=== PATIENT | male | born 1960 | race Two or more races ===

== ENCOUNTER 2024-09-22 10:08 | Emergency (ER) | payer OTHER, SELFPAY ==
[2024-09-22 10:12] VITALS: BP 156/99; PULSE 109; TEMP 36.6; O2SAT 91; BMI 38.0
--- NOTE | 2024-09-22 10:23 | PC.NURSE ---
no redness, bruising or swelling to neck or back, pt having trouble ambulating and pain when turning neck.
--- NOTE | 2024-09-22 10:28 | XR_ITS ---
The [place] [id number] Patient Name: SYLVESTER MADISON MRN: [facility]:[id number] date: 1960 Sex: M Assigned Patient Location: ER Current Patient Location: ER Accession/Order Number: [id number] Exam Date: 09/22/2024 10:45 Report Date: 09/22/2024 11:05 At the request of: CYN BRIONES Procedure: XR lumbar spine 2-3V EXAMINATION: XR lumbar spine 2-3V HISTORY: pain COMPARISON: No relevant comparison available. FINDINGS: BONES: No significant spondylosis, scoliosis, fracture, or visible bony lesion. DISC SPACES: No significant disc height narrowing, subluxation, or endplate abnormality. PARASPINOUS: Negative. No paraspinous abnormality is seen. OTHER: Negative. XR/XR lumbar spine 2-3V IMPRESSION: 1. No appreciable acute abnormality. 2. Minimal degenerative changes. Electronically authenticated by: LILLI HONEYCUTT Date: 09/22/2024 11:05
--- NOTE | 2024-09-22 10:28 | ED_ITS ---
HPI HPI - Back Pain/Injury General Chief Complaint: Back Pain/Injury Stated Complaint: BACK AND NECK PAIN Time Seen by Provider: 09/22/24 10:25 Source: patient Mode of arrival: Wheelchair History of Present Illness HPI Narrative: 64-year-old male presents to the emergency department for lower back and neck pain. It started 2 weeks ago when he was lifting a heavy toilet and he felt pulling in these 2 areas then. Subsequently he went to an urgent care center where he states they took x-rays of his lower back and put him on some medication. He did not have x-rays of his neck. No weakness or numbness in his arms or legs. He did not fall when this happened. It is worse in certain positions. Related Data Previous Rx's ?Medication ?Instructions ?Recorded hydrocodone 5 mg-acetaminophen 325 1 tab PO Q6H PRN pain 5 days #20 09/22/24 mg tablet tabs Allergies Allergy/AdvReac Type Severity Reaction Status Date / Time No Known Drug Allergies Allergy Verified 09/22/24 10:20 Opioid HPI Opioid Management Most Recent Opioid Data: Last Pain Scale 10 09/22/24 10:57 09/22/24 Last MAR Pain Assessment 09/22/24 10:57 Review of Systems ROS Narrative A ten point review of systems is negative except as noted above. PFSH PFSH Social History Little interest or pleasure in doing things: not at all Feeling down, depressed, or hopeless: not at all Exam Narrative Exam Narrative: Nurses note and vital signs reviewed and patient is not hypoxic. General: The patient appears in no apparent distress. Skin: Warm, dry, no pallor noted. There is no rash noted. Head: Normocephalic, atraumatic Eye: Normal conjunctiva, no drainage Ears, Nose, Mouth, and Throat: oral mucosa is moist. Nares patent. Cardiovascular: Regular Rate and Rhythm Respiratory: Patient is in no distress, no accessory muscle use, lungs are clear to auscultation, no wheezing, rales or rhonchi Back: No bruise or rash or palpable tenderness. He is reluctant to turn his head and has discomfort getting into a seated position from recumbency. GI: Soft and nontender Musculoskeletal: The patient has no evidence of calf tenderness, no pitting edema, symmetrical pulses noted bilaterally Neurological: A&O, normal speech Psychiatric: Cooperative Constitutional Vital Signs, click to edit/add: Last Vital Signs Temp 97.8 F 09/22/24 10:12 Pulse 109 H 09/22/24 10:12 Resp 22 H 09/22/24 10:12 BP 156/99 H 09/22/24 10:12 Pulse Ox 91 L 09/22/24 10:12 O2 Del Method Room Air 09/22/24 10:12 Course Vital Signs Vital signs: Vital Signs Temperature 97.8 F 09/22/24 10:12 Pulse Rate 109 H 09/22/24 10:12 Respiratory Rate 22 H 09/22/24 10:12 Blood Pressure 156/99 H 09/22/24 10:12 Pulse Oximetry 91 L 09/22/24 10:12 Oxygen Delivery Method Room Air 09/22/24 10:12 Temperature 97.8 F 09/22/24 10:12 Pulse Rate 109 H 09/22/24 10:12 Respiratory Rate 22 H 09/22/24 10:12 Blood Pressure 156/99 H 09/22/24 10:12 Pulse Oximetry 91 L 09/22/24 10:12 Oxygen Delivery Method Room Air 09/22/24 10:12 MDM - Back Pain/Injury MDM Narrative Medical decision making narrative: X-rays are negative. He was given IM Toradol and Norflex and prescribed Wellfleet. He is already on Flexeril and lidocaine patch and prednisone. Treatment diagnosis and follow-up were discussed with the patient and his . Differential Diagnosis Differential diagnosis: Likely strain of lumbar region and other (Fracture, cervical strain, cervical fracture) Imaging Data Lumbar, cervical x-ray: Radiologist's impression: ITS Impressions Cervical Spine X-Ray 09/22/24 10:28 IMPRESSION: 1. No appreciable acute abnormality. 2. Mild-moderate degenerative changes. Electronically authenticated by: LILLI HONEYCUTT Date: 09/22/2024 11:13 Lumbar Spine X-Ray 09/22/24 10:28 IMPRESSION: 1. No appreciable acute abnormality. 2. Minimal degenerative changes. Electronically authenticated by: LILLI HONEYCUTT Date: 09/22/2024 11:05 Discharge Plan Discharge Chief Complaint: Back Pain/Injury Clinical Impression: Lumbar strain, Cervical strain Patient Disposition: Home, Self-Care Time of Disposition Decision: 11:21 Condition: Good Mode of Transportation: Private Vehicle Prescriptions / Home Meds: New hydrocodone-acetaminophen 5-325 mg tablet 1 tab PO Q6H PRN (Reason: pain) 5 Days Qty: 20 0RF Print Language: Belgian Instructions: Cervical Strain (ED), Low Back Strain (ED) Referrals: Physician,Non-Staff, MD [Primary Care Provider] - 1 week
--- NOTE | 2024-09-22 10:28 | XR_ITS ---
The [address] [address] Patient Name: SYLVESTER MADISON MRN: [facility]:[id number] date: 1960 Sex: M Assigned Patient Location: ER Current Patient Location: ER Accession/Order Number: [id number] Exam Date: 09/22/2024 10:45 Report Date: 09/22/2024 11:13 At the request of: CYN BRIONES Procedure: XR cervical spine 2-3V EXAMINATION: XR cervical spine 2-3V HISTORY: pain COMPARISON: No relevant comparison available. FINDINGS: BONES: Straightening of the normal lordotic curvature. No fracture or spondylolisthesis. Multilevel mild degenerative facet arthropathy. DISC SPACES: Moderate narrowing on the right side of C1-2. Mild-moderate narrowing C5-6 and C6-7. PARASPINOUS: Negative. No paraspinous abnormality is seen. OTHER: Negative. XR/XR cervical spine 2-3V IMPRESSION: 1. No appreciable acute abnormality. 2. Mild-moderate degenerative changes. Electronically authenticated by: LILLI HONEYCUTT Date: 09/22/2024 11:13
[2024-09-22] MEDS: ORPHENADRINE 60 MG/ 2 ML VIAL IM (10:56)
[2024-09-22] MEDS: KETOROLAC TROMETHAMINE 60 MG/2 ML VIAL IM (10:57)
== END 2024-09-22 11:27 | disposition home or self-care (01) ==
PROVIDERS: Emergency Provider Emergency Medicine
DX: S39.012A Strain of muscle, fascia and tendon of lower back, initial encounter (principal); S16.1XXA Strain of muscle, fascia and tendon at neck level, initial encounter; X50.0XXA Overexertion from strenuous movement or load, initial encounter
CPT/HCPCS: 72040; 72100; 96372; 99284; J1885; J2360

== ENCOUNTER 2024-10-01 11:35 | Emergency (ER) | payer OTHER, SELFPAY ==
[2024-10-01] VITALS (70 sets, daily range): BP systolic 118–157; BP diastolic 75–89; PULSE 90–116; TEMP 37; O2SAT 88–100; BMI 38.0
--- OUTSIDE RECORDS SUMMARY | 2024-10-01 11:54 | XMS_ITS | CCD ---
Author Organization [facility] Care Team Providers Care [facility] Receiving Clerk Name Role Phone NON STAFF Primary Care Unavailable Corie Higgins Attending Unavailable Corie Higgins Admitting Unavailable NON STAFF Primary Care Provider Unavailbonnie e Corie Higgins APRN Attending Provider Medications Current Medications Medication Drug Class(es) Dates Sig (Normalized) Sig (Original) cyclobenzaprine hydrochloride 10 mg oral tablet (1 source) Muscle Relaxant Start: 09-08-2024 take 1 tablet by mouth three times daily as needed for muscle spasms Cyclobenzaprine 10 mg tablet Active 10 MG PO Three times daily as needed for muscle spasm 10 4 September 08, 2024 12:00am lidocaine 0.05 mg/mg medicated patch (1 source) Antiarrhythmic, Amide Local Anesthetic Start: 09-08-2024 apply 1 dose topically once daily Lidocaine 5 % adhesive patch,medicated Active 1 PATCH TOPICAL Daily 15 14 September 08, 2024 12:00am leave on most painful area for up to 12 hrs predniSONE 50 mg oral tablet (1 source) Start: 09-08-2024 take 1 tablet by mouth once daily Prednisone 50 mg tablet Active 50 MG PO Daily 5 5 September 08, 2024 12:00am Problems Problem Classification Problem Date Documented Da te Episodic/Chronic Other non-traumatic joint disorders (1 source) Hip pain; Translations: [Pain in left hip] 09-08-2024 Episodic Other non-traumatic joint disorders (1 source) Pain in left hip; Translations: [Pain in joint, pelvic region and thigh] 09-08-2024 Episodic Spondylosis; intervertebral disc disorders; other back problems (2 sources) Low back pain; Translations: [Low back pain] 09-08-2024 Episodic Unclassified (1 source) Low back pain, unspecified; Translations: [Low back pain, unspecified] Onset: 09-08-2024 Results Test Name Value Interpretation Reference Range Facil ity X-ray reportOrdered By: Artemio Ott on 09-08-2024 Study report [facility] [place] [address] XRay Report Signed Patient: Taz Tapia MR#: [id number] : 1960 Acct:[id number] Age/Sex: 64 / M ADM Date: 4 Loc: XDUCLY [facility]: [facility]: Corie Higgins APRN Copies to: Corie Higgins APRN~ Ordering Provider: Corie Higgins APRN Date of Service: 09/08/24 XR/XR lumbar spine min 4V*: LOW BACK PAIN ([id number]) XR/XR hip LT min 2V(w/wo pelvis)*: LEFT HIP PAIN 6 views Lumbar Spine HISTORY: Low back pain. Radiation to the left COMPARISON: None POSTSURGICAL CHANGES: None BONY ALIGNMENT: Adequate HYPERMOBILITY:No bending imaging. LISTHESIS:None FRACTURE: None DEGENERATIVE CHANGES: Extensive lower lumbar degeneration. Mild L4-5 and L5-S1 spondylosis. SOFT TISSUES: Unremarkable BONY MINERALIZATION:Adeq uate XR/XR lumbar spine min 4V* IMPRESSION: Extensive lower lumbar facet degeneration 2 views of left hip Adequate alignment. No acute displaced fracture. There are no significant degenerative change. IMPRESSION: Unremarkable exam Impression dictated by: Ady Ott M.D.09/08/2024 2:32 PM Dictation Location: [place] [address] Transcribed By: [facility] 09/08/24 1432 Dictated By: Ady Ott DO 09/08/24 1431 Signed By: 09/08/24 1432 [facility] XR hip LT min 2V(w/wo pelvis )*on 09-08-2024 XR hip LT min 2V(w/wo pelvis)* [facility] Main [address] [address] XRay Report Signed Patient: Taz Tapia MR#: [id number] : 1960 Acct:[id number] Age/Sex: 64 / M ADM Date: 09/08/24 Loc: XDUCLY Room: Type: [facility] Attending Dr: Corie Higgins APRN Copies to: Corie Higgins APRN Ordering Provider: Corie Higgins APRN Date of Service: 09/08/24 XR/XR lumbar spine min 4V*: LOW BACK PAIN ([id number]) XR/XR hip LT min 2V(w/wo pelvis)*: LEFT HIP PAIN 6 views Lumbar Spine HISTORY: Low back pain. Radiation to the left COMPARISON: None POSTSURGICAL CHANGES: None BONY ALIGNMENT: Adequate HYPERMOBILITY:No bending imaging. LISTHESIS:None FRACTURE: None DEGENERATIVE CHANGES: Extensive lower lumbar degeneration. Mild L4-5 and L5-S1 spondylosis. SOFT TISSUES: Unremarkable BONY MINERALIZATION:Adeq uate XR/XR lumbar spine min 4V* IMPRESSION: Extensive lower lumbar facet degeneration 2 views of left hip Adequate alignment. No acute displaced fracture. There are no significant degenerative change. IMPRESSION: Unremarkable exam Impression dictated by: Ady Ott M.D.09/08/2024 2:32 PM Dictation Location: [place] [address] Transcribed By: [facility] 09/08/24 1432 Dictated By: Ady Ott DO 09/08/24 1431 Signed By: 09/08/24 1432 Normal [facility] Vital Signs Date Time Vital Sign Value Performing Clinician Lynette cole 09-08-2024 13:04-0500 Body height 177.8 cm [facility] 09-08-2024 13:04-0500 Body mass index (BMI) [Ratio] 37.9 kg/m2 [facility] 09-08-2024 13:04-0500 Body temperature 97.8 [degF] [facility] 09-08-2024 13:04-0500 Body weight 119.86 kg [facility] 09-08-2024 13:04-0500 Diastolic blood pressure 94 mm[Hg] [facility] 09-08-2024 13:04-0500 Heart rate 111 /min [facility] 09-08-2024 13:04-0500 SaO2% (BldA) [Mass fraction] 95 % [facility] 09-08-2024 13:04-0500 Systolic blood pressure 163 mm[Hg] [facility] Encounters Encounter Date Encounter Type Care Provider Facility Start: 09-08-2024 End: 09-08-2024 Patient encounter procedure [facility] Work Phone: Start: 09-08-2024 End: 09-08-2024 ambulatory NON STAFF Facility:[facility] Start: 09-08-2024 End: 09-08-2024 Patient encounter procedure [facility] Work Phone: Procedures Date Procedure Procedure Detail Performing Clinician Start: 09-08-2024 Plain X-ray of left hip Start: 09-08-2024 X-ray of lumbar spin e, four or more views Plan of Treatment Date Care Activity Detail Author Patient Education Low back pain in adults [facility] Work Phone: XR Hip - left 2 Views [facility] XR Lumbar spine GE 4 Views [facility] Payers Date Payer Category Payer Private Health Insurance [id number] 2024 Self-pay Unknown [id number] Social History Date Type Detail Facility Tobacco smoking stat [facility] Unknown if ever smoked [facility] Work Phone: Start: 09-09-2024 Sex Male (finding) [facility] Start: 1960 Sex Assigned At Male F [facility] Evaluation note 09-08-2024 Note Date & Type Note Facility 09-08-2024 Evaluation note Diagnosis Onset Date Resolution Left hip pain acute September 082023 12:09pm Low back pain acute September 082023 12:09pm [facility] Work Phone: Summary Purpose Family History No Family History Records Found Advance Directives Advance Directive Response Recorded Date/ Time Advance Directives No August 12:08pm Chief Complaint and Reason for Visit Chief Complaint Admit Date back pain no injury September 08, 2024 12:09pm M25.552 September 08, 2024 1:47pm Reason for Visit Admit Date Left hip pain September 08, 2024 12:09pm Low back pain September 08, 2024 12:09pm Additional Source Comments (unrecognized sect ion and content) No Status Records Found INFORMATION SOURCE (unrecogn ized section and content) DATE CREATED AUTHOR 09/18/2024 [facility] Care Teams (unrecognized sec tion and content) Team Status: Active Member Role Status Dates NON STAFF Primary Care Provider Active Team Status: Inactive Member Role Status Dates Corie Higgins APRN Attending Provider Active S tart: September 08, 2024 End: September 08, 2024 NON STAFF Primary Care Provider Active Start: September 08, 2024 End: September 08, 2024 Team Status: Inactive Member Role Status Dates NON STAFF Primary Care Provider Active Start: September 08, 2024 End: September 08, 2024 Corie Higgins APRN Attending Provider Active S tart: September 08, 2024 End: September 08, 2024 Goals (unrecognized section and content) Goals may be documented in a n alternate section FOR RECORDS PERTAINING TO PATIENTS WHO ARE OR HAVE BEEN ENROLLED IN A CHEMICAL DEPENDENCY/SUBSTANCEABUSE PROGRAM, SOME INFORMATION MAY BE OMITTED. This clinical summary was aggregated from multiple sources. Caution should be exercised in using it in the provision of clinical care. This summary normalizes information from multiple sources, and as a consequence, information in this document may materially change the coding, format and clinical context of patient data. In addition, data may be omitted in some cases. CLINICAL DECISIONS SHOULD BE BASED ON THE PRIMARY CLINICAL RECORDS. [facility] Support [employer] [facility]. provides no warranty or guarantee of the accuracy or completeness of information in this document.
--- NOTE | 2024-10-01 12:09 | CT_ITS ---
The [address] [address] Patient Name: SYLVESTER MADISON MRN: [facility]:[id number] date: 1960 Sex: M Assigned Patient Location: ER Current Patient Location: ER Accession/Order Number: [id number] Exam Date: 10/01/2024 12:50 Report Date: 10/01/2024 13:51 At the request of: TOMER PIRES Procedure: CT cervical spine wo con EXAMINATION: CT lumbar spine wo con, CT cervical spine wo con HISTORY: right leg weakness COMPARISON: No relevant comparison available. TECHNIQUE: Axial, Coronal, and Sagittal CT images were created without I.V. contrast material. Dose reduction techniques were achieved by using automated exposure control and/or adjustment of mA and/or kV according to patient size and/or use of iterative reconstruction technique. CERVICAL SPINE FINDINGS: PARASPINAL AREA: Normal with no visible mass. DISCS: Multilevel disc space narrowing with endplate sclerosis BONES: Normal alignment with no spondylolisthesis. Complex fracture involving the right C1 vertebral body with underlying lytic changes. Additional lytic changes involving the vertebral bodies most significant at C4 C6 C7 and T1 OTHER: Negative. CT/CT cervical spine wo con IMPRESSION: Diffuse lytic metastases with associated complex pathologic fracture through the right C1 vertebral body LUMBAR SPINE FINDINGS: PARASPINAL AREA: Normal with no visible mass. DISCS: Mild multilevel discogenic changes BONES: Normal alignment with no spondylolisthesis. There is a depressed appearance of the L4 superior endplate with retropulsion of the posterior superior body into the central canal. Underlying diffuse lytic changes involving the vertebral bodies posterior elements and spinous processes most significant along the L4 vertebral body OTHER: Expansile appearance of the vertebral body and right pedicle at L4 likely resulting in significant L4-L5 foraminal stenosis IMPRESSION: Diffuse lytic changes, metastatic disease is favored Masslike destruction of the right L4 vertebral body pedicle and transverse process with retropulsion into the central canal and right L4-L5 foraminal stenosis. Electronically authenticated by: ELVIA DEL CID Date: 10/01/2024 13:51
--- NOTE | 2024-10-01 12:09 | ECG_ITS ---
The [facility] Test Date: 2024-10-01 Pat Name: SYLVESTER MADISON Department: Room: - Gender: Male [employer]: : 1960 Requested By: [id number] Order Number: [id number] Reading MD: JOHN GIBBS Measurements Intervals [place] Rate: 109 P: 68 OR: 134 QRS: -40 QRSD: 98 T: 189 QT: 324 QTc: 388 Interpretive Statements 1120 Sinus tachycardia [address] depression [address] & [place] abnormality 7200 Abnormal left axis deviation 8003 Consistent with pulmonary disease 9150 abnormal ECG No previous ECG available for comparison Electronically Signed On 10-01-2024 17:56:40 EST by JOHN GIBBS
--- NOTE | 2024-10-01 12:10 | CT_ITS ---
The [address] [address] Patient Name: SYLVESTER MADISON MRN: [facility]:[id number] date: 1960 Sex: M Assigned Patient Location: ER Current Patient Location: Accession/Order Number: [id number] Exam Date: 10/01/2024 12:50 Report Date: 10/01/2024 14:07 At the request of: TOMER PIRES Procedure: CT head/brain wo con CT HEAD WITHOUT CONTRAST, 10/01/2024 HISTORY: Headache. Pain and skull base. COMPARISON: None. TECHNIQUE: Noncontrast axial CT images obtained through the head. Reconstructions obtained in the sagittal and coronal planes. Dose reduction techniques were achieved by using automated exposure control and/or adjustment of mA and/or kV according to patient size and/or use of iterative reconstruction technique. FINDINGS: The paranasal sinuses are clear. Middle ear cavities clear. Mastoid air cells are clear. There are multiple lytic skull lesions. Nasopharynx normal. Orbital contents appear normal. No mass identified in the scalp. No skull base lesion identified. No hydrocephalus. No subdural fluid collection. No mass effect. No shift of midline. No edema in the brain. No brain mass. Tan matter and white matter differentiation is intact. No hemorrhage. CT/CT head/brain wo con IMPRESSION: 1. There are multiple lytic bone lesions in the skull consistent with either metastatic disease or multiple myeloma. 2. The brain is unremarkable. No intracranial hemorrhage. No brain mass. Electronically authenticated by: MOISÉS TELLO Date: 10/01/2024 14:07
--- NOTE | 2024-10-01 12:11 | CT_ITS ---
[address] [address] Patient Name: SYLVESTER MADISON MRN: [facility]:[id number] date: 1960 Sex: M Assigned Patient Location: ER Current Patient Location: ER Accession/Order Number: [id number] Exam Date: 10/01/2024 12:50 Report Date: 10/01/2024 13:51 At the request of: TOMER PIRES Procedure: CT lumbar spine wo con EXAMINATION: CT lumbar spine wo con, CT cervical spine wo con HISTORY: right leg weakness COMPARISON: No relevant comparison available. TECHNIQUE: Axial, Coronal, and Sagittal CT images were created without I.V. contrast material. Dose reduction techniques were achieved by using automated exposure control and/or adjustment of mA and/or kV according to patient size and/or use of iterative reconstruction technique. CERVICAL SPINE FINDINGS: PARASPINAL AREA: Normal with no visible mass. DISCS: Multilevel disc space narrowing with endplate sclerosis BONES: Normal alignment with no spondylolisthesis. Complex fracture involving the right C1 vertebral body with underlying lytic changes. Additional lytic changes involving the vertebral bodies most significant at C4 C6 C7 and T1 OTHER: Negative. CT/CT lumbar spine wo con IMPRESSION: Diffuse lytic metastases with associated complex pathologic fracture through the right C1 vertebral body LUMBAR SPINE FINDINGS: PARASPINAL AREA: Normal with no visible mass. DISCS: Mild multilevel discogenic changes BONES: Normal alignment with no spondylolisthesis. There is a depressed appearance of the L4 superior endplate with retropulsion of the posterior superior body into the central canal. Underlying diffuse lytic changes involving the vertebral bodies posterior elements and spinous processes most significant along the L4 vertebral body OTHER: Expansile appearance of the vertebral body and right pedicle at L4 likely resulting in significant L4-L5 foraminal stenosis IMPRESSION: Diffuse lytic changes, metastatic disease is favored Masslike destruction of the right L4 vertebral body pedicle and transverse process with retropulsion into the central canal and right L4-L5 foraminal stenosis. Electronically authenticated by: ELVIA DEL CID Date: 10/01/2024 13:51
[2024-10-01 12:37] LABS: Hematocrit 41.7 % (42.0-54.0); Hemoglobin 14.2 g/dL (14.0-18.0); Mean Corpuscular HGB Conc 34.1 g/dL (29.9-35.2); Mean Corpuscular Hemoglobin 36.3 pg (25.9-34.0); Mean Corpuscular Volume 106.6 fL (80.0-94.0); Mean Platelet Volume 10.2 fL (9.5-13.5); Platelet Count 107 10^3/uL (150-450); Red Blood Count 3.91 10^6/uL (4.70-6.10); Red Cell Distribution Width 13.3 % (11.0-15.0); White Blood Count 23.7 10^3/uL (4.0-11.0)
[2024-10-01] MEDS: KETOROLAC TROMETHAMINE 30 MG/ML VIAL 15 MG IVP (12:43)
[2024-10-01 12:45] LABS: Influenza Virus A Antigen Negative; Influenza Virus B Antigen Negative; Internal Control Within Normal Limits; SARS-CoV-2 Ag NEGATIVE (NEGATIVE)
[2024-10-01 12:49] LABS: Alanine Aminotransferase 57 U/L (16-63); Albumin Globulin Ratio 0.8; Albumin Level 2.9 g/dL (3.4-5.0); Alkaline Phosphatase 483 U/L (46-116); Aspartate Amino Transferase 87 U/L (15-37); BUN Creatinine Ratio 24.1; Bilirubin Total 3.3 mg/dL (0.2-1.0); Calcium 11.8 mg/dL (8.5-10.1); Carbon Dioxide 32.7 mmol/L (21.0-32.0); Chloride 99 mmol/L (98-107); Estimated GFR (African America >60 (>=60 mL/min/1.73m^2); Estimated GFR (Non-African Ame >60 (>=60 mL/min/1.73m^2); Globulin 3.6 g/dL; Glucose 115 mg/dL (74-106); Potassium 4.7 mmol/L (3.5-5.1); Sodium 137 mmol/L (136-145); Total Protein 6.5 g/dL (6.4-8.2)
[2024-10-01 12:50] LABS: Band Neutrophils Absolute 0.2 10^3/uL (0.0-0.3); Eosinophils Absolute Manual 0.23 10^3/uL (0.00-0.70); Lymphocytes Absolute Manual 0.94 10^3/uL (1.20-3.80); Monocytes Absolute Manual 3.31 10^3/uL (0.30-0.80); Segmented Neut Absolute Manual 18.96 10^3/uL (1.4-6.5)
[2024-10-01 12:51] LABS: Anisocytosis 1+; Macrocytosis 1+
[2024-10-01 12:56] LABS: INR 1.33; Prothrombin Time 13.7 sec (9.0-11.6)
[2024-10-01 13:02] LABS: D Dimer 13.56 mg/L FEU (<=0.59)
--- NOTE | 2024-10-01 13:06 | CT_ITS ---
[address] [address] Patient Name: SYLVESTER MADISON MRN: [facility]:[id number] date: 1960 Sex: M Assigned Patient Location: ER Current Patient Location: Accession/Order Number: [id number] Exam Date: 10/01/2024 12:50 Report Date: 10/01/2024 14:37 At the request of: TOMER PIRES Procedure: CT angio chest EXAM: CT angio chest HISTORY: sob elevated dimer COMPARISON: Same-day CT lumbar spine TECHNIQUE: CT angio chest FINDINGS: OVERALL DIAGNOSTIC QUALITY: Mildly suboptimal quality with incomplete evaluation of subsegmental pulmonary arteries due to respiratory motion artifact. LOWER NECK: No abnormality. CHEST: PULMONARY ARTERIES: Embolus within the right lower lobe medial segmental pulmonary artery and its distal branches. Limited subsegmental pulmonary arterial evaluation due to respiratory motion. LUNGS / AIRWAYS / PLEURA: Irregular spiculated opacities throughout the lungs, highly suspicious for metastatic disease given the additional findings of metastatic disease, described below. For example, there is a solid spiculated nodule in the left upper lobe measuring 1.0 cm (image 15 of series 4) and a subsolid spiculated nodule in the right lower lobe measuring 1.1 cm (image 36 of series 4). There is also superimposed septal thickening. No pleural effusion or pneumothorax. Diffuse peribronchial thickening, also with mucous plugging of the distal left upper lobe bronchioles. HEART / OTHER VESSELS: Trace coronary artery disease. No evidence of right heart strain. MEDIASTINUM / ESOPHAGUS: Normal. LYMPH NODES: Multiple calcified mediastinal and hilar lymph nodes. CHEST WALL: No significant abnormality. UPPER ABDOMEN: Numerous hypoenhancing lesions of the liver, the largest measuring up to 5.2 cm (image 83 of series 4). Mildly nodular liver surface. Small volume ascites. Irregular peritoneal nodularity noted anteriorly, raising the suspicious for peritoneal carcinomatosis. MUSCULOSKELETAL: Extensive lytic osseous metastatic disease throughout the axial skeleton, including of the right acromion and right humeral head, both scapulae, and numerous bilateral ribs. Lytic involvement throughout the thoracolumbar spine as described on the same day thoracic and lumbar spine CTs. CT/CT angio chest IMPRESSION: 1. Pulmonary embolus within the right lower lobe medial segmental pulmonary artery and its distal branches. No evidence of right heart strain. 2. Numerous irregular spiculated opacities throughout the lungs, highly suspicious for metastatic disease. Atypical multifocal pneumonia is less likely but could be superimposed upon the metastatic disease. 3. Numerous hypoenhancing hepatic lesions and osseous lytic lesions throughout the imaged axial skeleton, highly suspicious for metastatic disease of unknown primary. Small volume ascites and nodularity of the omentum raises the suspicion for peritoneal carcinomatosis. Consider dedicated CT abdomen pelvis with contrast for further evaluation. 4. Peribronchial thickening throughout the lungs, with distal mucous plugging in the left upper lobe. Findings were discussed with Dr. Pires via telephone by Dr. Oscar on 10/01/2024 1:34 PM [employer]. Electronically authenticated by: JAMSHID OSCAR Date: 10/01/2024 14:37
[2024-10-01] MEDS: MORPHINE SULFATE 4 MG/ML VIAL IV ×3 (14:27→20:38)
[2024-10-01] MEDS: DEXAMETHASONE SOD PHOS 10 MG/ML VIAL IV (14:27)
[2024-10-01 15:11] LABS: Partial Thromboplastin Time 24.9 sec (22.3-36.2)
[2024-10-01] MEDS: HEPARIN SODIUM (PORCINE) 5,000 UNIT/ML VIAL 7400 UNIT IV (15:17)
[2024-10-01] MEDS: HEPARIN SODIUM,PORCINE/D5W 25,000 UNIT/500 ML IV.SOLN 30 UNIT IV (15:17)
[2024-10-01 15:40] LABS: Lactate Dehydrogenase 253 U/L (85-227)
--- NOTE | 2024-10-01 15:45 | ED_ITS ---
HPI HPI - General Adult General Chief complaint: Back Pain/Injury Stated complaint: back pain Time Seen by Provider: 10/01/24 11:59 Source: patient Mode of arrival: Wheelchair Limitations: physical limitation History of Present Illness HPI narrative: The patient have no previous medical history coming to the ER for the evaluation of his right-sided neck and back pain that he had almost a week ago, patient at that time presented to the ER with headache x-ray of his back and his neck showed arthritis. The patient mentioned that the pain medication are not working and he is coming for evaluation Although the patient denies any other complaint he does seem to be tachypneic his pulse ox was 88% at room air, patient denies being smoker at any time he also was noted to be tachycardic The patient is also complaining of some headache in the right side of his head The patient was providing history he mentioned that he also has been dragging his right leg the last few days which is a new finding, the patient himself is not complaining of weakness although he agree that he has been dragging his right leg and he have some weakness in it Related Data Previous Rx's ?Medication ?Instructions ?Recorded hydrocodone 5 mg-acetaminophen 325 1 tab PO Q6H PRN pain 5 days #20 09/22/24 mg tablet tabs Allergies Allergy/AdvReac Type Severity Reaction Status Date / Time No Known Drug Allergies Allergy Verified 10/01/24 11:51 Opioid HPI Opioid Management Most Recent Opioid Data: Last Pain Scale 6 10/01/24 18:27 10/01/24 Last MAR Pain Assessment 10/01/24 18:27 Review of Systems ROS Status of ROS 10 or more systems reviewed and unremark able except as noted in history and below PFSH PFSH Social History Little interest or pleasure in doing things: not at all Feeling down, depressed, or hopeless: not at all Exam Narrative Exam Narrative: Nurses notes and vital signs reviewed and the patient is not in distress but his pulse ox is 88% at room air General: Well-appearing and in no apparent distress. Skin: Warm, dry, no pallor noted. No rash. Head: Normocephalic, atraumatic. Neck: Supple, non-tender. Eye: Pupils are equal, round and EOMI. No scleral icterus. Ears, Nose, Mouth, and Throat: TM are clear, no nasal mucosal hypertrophy. Oral mucosa is moist, no posterior oropharynx erythema, uvula is mid-line Cardiovascular: Regular Rate and Rhythm without murmur, gallop or rub. Respiratory: There is decreased air entry bilaterally and distant breathing sounds Lungs are clear to auscultation, no wheezing, rales or rhonchi Chest Wall: no tenderness Back: There is tenderness upon palpation of the lower thoracic area as well as the lumbar intervertebral level. Musculoskeletal: normal ROM, no calf or popliteal tenderness, no lower extremity edema/swelling GI: Abdomen is soft, non-distended. Normal bowel sounds. No masses appreciated. No tenderness to palpation. No rebound, guarding, or rigidity noted. Neurological: A&O x4. No cranial nerve dysfunction observed. The patient does have weakness in the right leg and he have some effort against gravity on the right side on the left side the patient have more effort against gravity but he cannot still hold his left lower extremity against gravity for long Psychiatric: Cooperative and interactive. Normal mood and affect. Constitutional Vital Signs, click to edit/add: Last Vital Signs Temp 98.6 F 10/01/24 11:51 Pulse 108 H 10/01/24 17:20 Resp 21 H 10/01/24 17:20 BP 151/84 H 10/01/24 15:25 Pulse Ox 95 10/01/24 17:20 O2 Del Method Room Air 10/01/24 11:51 Course Vital Signs Vital signs: Vital Signs Temperature 98.6 F 10/01/24 11:51 Pulse Rate 116 H 10/01/24 11:51 Respiratory Rate 18 10/01/24 11:51 Blood Pressure 142/86 H 10/01/24 11:51 Pulse Oximetry 88 L 10/01/24 11:51 Oxygen Delivery Method Room Air 10/01/24 11:51 Temperature 98.6 F 10/01/24 11:51 Pulse Rate 108 H 10/01/24 17:20 Respiratory Rate 21 H 10/01/24 17:20 Blood Pressure 151/84 H 10/01/24 15:25 Pulse Oximetry 95 10/01/24 17:20 Oxygen Delivery Method Room Air 10/01/24 11:51 Medical Decision Making MDM Narrative Medical decision making narrative: It was noted that the patient have a sinus tachycardia with presentation on the EKG in addition to no ST elevation Patient was provided with prednisone in the last 10 days he was evaluated another facility, in addition to the Norflex as a muscle laxer The patient prednisone could be the reason for the leukocytosis and that there is no source of infection The patient chemistry showing multiple alteration of the liver enzymes in addition to alk phos elevation It was also noted that the patient D-dimer was elevated and his CT of the chest shows pulmonary embolism on the right side in addition to multiple metastatic lung disease The patient also had a multiple liver metastasis and when reviewing the CAT scan of the cervical spine and the CT of the head the patient had multiple osteolytic lesion as well CT of the lumbar spine showed that the patient have a significant damage in the L4 level with possible masslike with the significant L4-L5 stenosis The patient was started on heparin for PE management according to PE protocol Patient also was started on morphine for pain Decadron 10 mg IV given to help relieving some of the pressure at the spinal cord The patient case was discussed with and oncology service and he agreed that the patient can be transferred to [facility] The patient right now on 2 L nasal cannula to saturate 95% The patient case was discussed with [facility] Dr. Go and neurosurgery and he requested the patient be transferred to a facility where they have spine oncology due to the pathological fracture to C1 and L4 As per the recommendation of neurosurgery if the patient is not in pain he does not have to be in a cervical collar case was discussed with neurosurgery in [facility] and with Dr. Vieira and there is no bed available at least for 1 or 2 days The patient also had a COVID and flu test are negative Right now the patient case also will be discussed with [facility] Lab Data Labs: Lab Results 10/01/24 10/01/24 Range/Units 12:24 12:27 WBC 23.7 H (4.0-11.0) 10^3/uL RBC 3.91 L (4.70-6.10) 10^6/uL Hgb 14.2 (14.0-18.0) g/dL Hct 41.7 L (42.0-54.0) % MCV 106.6 H (80.0-94.0) fL MCH 36.3 H (25.9-34.0) pg MCHC 34.1 (29.9-35.2) g/dL RDW 13.3 (11.0-15.0) % Plt Count 107 L (150-450) 10^3/uL MPV 10.2 (9.5-13.5) fL Seg Neuts % (Manual) 80.0 H (43.0-75.0) Band Neutrophils % 1.0 (0-5) % Lymphocytes % (Manual) 4.0 L (20.5-60.0) % Monocytes % (Manual) 14.0 H (1.7-12.0) % Eosinophils % (Manual) 1.0 (0.9-7.0) % Basophils % (Manual) 0.0 L (0.2-2.0) % Neutrophils # (Manual) 18.96 H (1.4-6.5) 10^3/uL Band Neutrophils # 0.2 (0.0-0.3) 10^3/uL Lymphocytes # (Manual) 0.94 L (1.20-3.80) 10^3/uL Monocytes # (Manual) 3.31 H (0.30-0.80) 10^3/uL Eosinophils # (Manual) 0.23 (0.00-0.70) 10^3/uL Basophils # (Manual) 0.00 (0.00-0.10) 10^3/uL Anisocytosis 1+ Macrocytosis 1+ PT 13.7 H (9.0-11.6) sec INR 1.33 APTT 24.9 (22.3-36.2) sec D-Dimer 13.56 H* (<=0.59) mg/L FEU Sodium 137 (136-145) mmol/L Potassium 4.7 (3.5-5.1) mmol/L Chloride 99 (98-107) mmol/L Carbon Dioxide 32.7 H (21.0-32.0) mmol/L Anion Gap 10.0 BUN 26.0 H (7.0-18.0) mg/dL Creatinine 1.08 (0.70-1.30) mg/dL Est GFR ( Amer) >60 (>=60 mL/min/1.73m^2) Est GFR (Non-Af Amer) >60 (>=60 mL/min/1.73m^2) BUN/Creatinine Ratio 24.1 Glucose 115 H (74-106) mg/dL Calcium 11.8 H (8.5-10.1) mg/dL Total Bilirubin 3.3 H (0.2-1.0) mg/dL AST 87 H (15-37) U/L ALT 57 (16-63) U/L Alkaline Phosphatase 483 H (46-116) U/L Lactate Dehydrogenase 253 H (85-227) U/L Troponin I High Sens 51.0 (4.0-76.1) pg/mL Total Protein 6.5 (6.4-8.2) g/dL Albumin 2.9 L (3.4-5.0) g/dL Globulin 3.6 g/dL Albumin/Globulin Ratio 0.8 Influenza Type A Ag Negative Influenza Type B Ag Negative SARS-CoV-2 Ag (CV2AG) Negative (NEGATIVE) Discharge Plan Discharge Chief Complaint: Back Pain/Injury Clinical Impression: Pulmonary embolism, Metastatic bone tumor, 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
--- NOTE | 2024-10-01 21:28 | PC.NURSE ---
Divina contacted and updated with admission to [facility] information.
--- NOTE | 2024-10-01 21:50 | PC.NURSE ---
[facility] crew here to transport pt, however, they don't have an EMT-P--but did contact a crew with one. The EMT-P crew will be here in approximately one hour.
--- NOTE | 2024-10-01 21:59 | PC.NURSE ---
Pt states that his low back pain has improved greatly. Continues to rest quietly.
[2024-10-01 22:10] LABS: PTT Heparin Monitor 54.6 sec (43.5-61.5)
--- NOTE | 2024-10-01 22:29 | PC.NURSE ---
PTT resulted at this time. It shows a PTT of 54.6 which is therapeutic, and therefore no change in the drip rate.
--- NOTE | 2024-10-01 23:22 | PC.NURSE ---
[facility] crew here here. Report and update to them. Care relinquished.
--- NOTE | 2024-10-01 23:39 | PC.NURSE ---
Report ETA, and update to RN.
[2024-10-02 17:07] LABS: CA 19-9 35045 U/mL (0-35)
== END 2024-10-01 23:22 | disposition short-term general hospital (02) ==
PROVIDERS: Emergency Medicine; Emergency Provider Emergency Medicine; PCP Family Medicine
DX: I26.99 Other pulmonary embolism without acute cor pulmonale (principal); R79.89 Other specified abnormal findings of blood chemistry; C78.7 Secondary malignant neoplasm of liver and intrahepatic bile duct; M89.58 Osteolysis, other site; M84.48XA Pathological fracture, other site, initial encounter for fracture; C79.49 Secondary malignant neoplasm of other parts of nervous system; C78.00 Secondary malignant neoplasm of unspecified lung
CPT/HCPCS: 36415; 70450; 71275; 72125; 72131; 80053; 83615; 84484; 85007; 85027; 85378; 85610; 85730; 86301; 87804; 87811; 93005; 96374; 96375; 96376; 99285; J1100; J1644; J1885; J2270; Q9967